=== PATIENT | male | born 2005 | race Caucasian/White ===

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

== ENCOUNTER 2025-06-11 21:20 | Emergency (ER) | payer SELFPAY ==
--- NOTE | 2025-06-11 21:37 | HMH.EDGENADL ---
Discharge Plan Disposition Patient Disposition: Home, Self-Care Condition: Good Prescriptions Prescriptions: New amoxicillin-pot clavulanate 875-125 mg tablet 1 tab PO BID Qty: 20 0RF No Action amoxicillin 875 mg tablet 875 mg PO Q12H Qty: 20 0RF pseudoephedrine HCl [Sudafed 12 Hour] 120 mg tablet extended release 120 mg PO Q12H PRN (Reason: nasal congestion) Qty: 10 0RF fluticasone propionate [Flonase Allergy Relief] 50 mcg/actuation spray,suspension 2 spray intranasal DAILY Qty: 16 0RF Rx Instructions: administer into each nostril daily Referrals Follow up/Referrals: Provider,Referral, MD [Primary Care Provider, Medical] - See instructions Activity Restrictions/Add. Instructions Additional Instructions/Restrictions: Please take your antibiotic untill it is gone. If you have any new or worsening signs or symptoms follow-up with your PCP return to the ER as needed. You can take Tylenol, ibuprofen and salt water rinses to help with pain. Clinical Impressions Clinical Impression: Exudative pharyngitis Print Language Print Language: Greek Discharge ED Provider: Miguel Mcelroy General Adult HPI <TERESE Kirby - Last Filed: 06/11/25 22:02> General Chief complaint: Upper Respiratory Infection Stated complaint: fever,body aches,sore throat Time Seen by Provider: 06/11/25 21:37 History of Present Illness HPI narrative: Patient presents for evaluation of sore throat headache body aches. Symptoms began several days ago. Patient has a long standing history of strep and still has his tonsils. He has been taking Tylenol alternating with ibuprofen and still has had had a fever above 103 when the medication wears off. He denies any chest pain shortness of breath nausea vomiting diarrhea hemoptysis hematochezia melena. Related Data Previous Rx's ?Medication ?Instructions ?Recorded amoxicillin 875 mg tablet 875 mg PO Q12H #20 tabs 01/07/24 fluticasone propionate 50 2 spray intranasal DAILY #16 grams 01/07/24 mcg/actuation nasal spray,suspension (Flonase Allergy Relief) pseudoephedrine HCl 120 mg 120 mg PO Q12H PRN nasal 01/07/24 tablet,extended release (Sudafed congestion #10 tabs 12 Hour) amoxicillin 875 mg-potassium 1 tab PO BID #20 tabs 06/11/25 clavulanate 125 mg tablet Allergies Allergy/AdvReac Type Severity Reaction Status Date / Time No Known Allergies Allergy Verified 01/07/24 18:38 [facility] <TERESE Kirby - Last Filed: 06/11/25 22:02> [facility] Disclaimer: The information contained in this section may have been updated after the patient was seen, as this information can be updated by other users. Social History (Updated 01/07/24 @ 19:03 by Palmira Fuchs APRN) Smoking Status: Current every day smoker alcohol intake: never current occupational status: employed Travel in the last 8 weeks?: None Have you lived/traveled outside US in past 30 days?: No Contact w/someone who lives/traveled outside US past 30 days?: No Exposure to someone with infectious disease in past 14 days?: No Do you have a fever (greater than 100.4 F or 38 C)?: No Have you tested positive for COVID-19?: No Exposed to someone with COVID-19 in past 14 days?: No Do you have a sore throat?: No Do you have a cough?: No Do you have any weakness?: No Do you have any diarrhea?: No Are you experiencing any unusual bleeding?: No Do you have any muscle aches/pain?: No Do you have any abdominal pain?: No Are you experiencing loss of taste or smell?: No <TERESE Kirby - Last Filed: 06/11/25 22:02> ROS Obtained: Yes Systems reviewed as appropriate & no additional complaints except as documented Physical Exam <TERESE Kirby - Last Filed: 06/11/25 22:02> General General appearance: alert and in no apparent distress Respiratory Respiratory exam: Present normal lung sounds bilaterally Cardiovascular Cardiovascular exam: Present regular rate Neurological Exam Neurological exam: Present alert and oriented X3 Medical Decision Making <TERESE Kirby - Last Filed: 06/11/25 22:02> Medical Records Medical records reviewed: Yes I reviewed the patient's medical records. Screening: Per USPSTF and CDC recommendations, given the prevalence of disease in our region, it is our hospital?s policy to screen for HIV and viral Hepatitis for all patients aged 18 and over and those with ongoing risk factors. Ty Inquiry Pt receiving controlled substance: No Vital Signs: 06/11/25 21:41 06/11/25 23:12 Temperature 99.4 F 99.4 F Temperature Source Oral Oral Pulse Rate 93 H Pulse Rate [Left Radial] 99 H Respiratory Rate 18 18 Blood Pressure 130/70 Blood Pressure [Right Arm] 121/66 Blood Pressure Mean [Right Arm] 84 Blood Pressure Source Automatic Cuff Blood Pressure Source [Right Arm] Automatic Cuff Blood Pressure Position Sitting Blood Pressure Position [Right Arm] Sitting 02 Sat by Pulse Oximetry 98 Oxygen Delivery Method Room Air Room Air Lab Data Lab results reviewed: Yes I reviewed the patient's lab results. Lab Results 06/11/25 21:42: Group A Strep Rapid Negative 06/11/25 22:16: Chlamy pneumoniae PCR Not detected, Adenovirus (PCR) Not detected, B. pertussis DNA (PCR) Not detected, Coronavirus OC43 (PCR) Not detected, Coronavirus HKU1 (PCR) Not detected, Coronavirus 229E (PCR) Not detected, SARS-CoV-2 (PCR) Not detected, Coronavirus NL63 (PCR) Not detected, Monoscreen Negative, Human Metapneumovir PCR Not detected, Influenza A (H1) PCR Not detected, Influ A (H1N1/09) PCR Not detected, Influenza A (H3) PCR Not detected, Influenza Type A (PCR) Not detected, Influenza Type B (PCR) Not detected, M. pneumoniae (PCR) Not detected, Parainfluenza 1 (PCR) Not detected, Parainfluenza 2 (PCR) Not detected, Parainfluenza 3 (PCR) Not detected, Parainfluenza 4 (PCR) Not detected, RSV (PCR) Not detected, Entero/Rhino (PCR) Not detected Orders (Tests/Meds): ED MEDICATIONS Discontinued Medications Generic Name Dose Route Start Last Admin Trade Name Freq PRN Reason Stop Dose Admin Amoxicillin/Clavulanate Potassium 1 each 06/11/25 21:45 06/11/25 22:16 Amoxicillin/Clavulanate Potassium 875/125mg Tablet PO 06/11/25 21:46 1 each ONCE ONE Administration ORDERS Category Date Time Status Full Resp Panel w/COVID ([facility]) Routine Lab 06/11/25 22:16 Completed Monoscreen (Rapid) Stat Lab 06/11/25 22:16 Completed Strep Scrn Group A (Rapid) Stat Lab 06/11/25 21:42 Completed Strep Screen Confirmation Stat Micro 06/11/25 21:42 Received Medical Decision Narrative: In summary patient is a 20-year-old male who presents to the emergency department for evaluation of sore throat fever headache body aches. Patient is hemodynamically stable upon arrival, the temperature is 99.4 currently. Physical exam is remarkable for significantly erythematous tonsils with exudate. Patient has bilateral cervical lymphadenopathy. Breath sounds clear and equal bilaterally to the bases.. Differential diagnosis includes group A strep versus other strain of strep versus other exudative pharyngitis versus mono versus viral infection. Initial workup will be conducted with rapid strep screen Monospot and throat culture. Initial interventions considered with Tylenol and ibuprofen however patient is taking both prior to his arrival. Initial workup reviewed by me and a strep screen rapid is negative and the remainder are pending at the time of handoff to Dr. Mcelroy at 2200 hrs. <Miguel Mcelroy MD - Last Filed: 06/12/25 10:16> Vital Signs: 06/11/25 21:41 06/11/25 23:12 Temperature 99.4 F 99.4 F Temperature Source Oral Oral Pulse Rate 93 H Pulse Rate [Left Radial] 99 H Respiratory Rate 18 18 Blood Pressure 130/70 Blood Pressure [Right Arm] 121/66 Blood Pressure Mean [Right Arm] 84 Blood Pressure Source Automatic Cuff Blood Pressure Source [Right Arm] Automatic Cuff Blood Pressure Position Sitting Blood Pressure Position [Right Arm] Sitting 02 Sat by Pulse Oximetry 98 Oxygen Delivery Method Room Air Room Air Lab Data Lab Results 06/11/25 21:42: Group A Strep Rapid Negative 06/11/25 22:16: Chlamy pneumoniae PCR Not detected, Adenovirus (PCR) Not detected, B. pertussis DNA (PCR) Not detected, Coronavirus OC43 (PCR) Not detected, Coronavirus HKU1 (PCR) Not detected, Coronavirus 229E (PCR) Not detected, SARS-CoV-2 (PCR) Not detected, Coronavirus NL63 (PCR) Not detected, Monoscreen Negative, Human Metapneumovir PCR Not detected, Influenza A (H1) PCR Not detected, Influ A (H1N1/09) PCR Not detected, Influenza A (H3) PCR Not detected, Influenza Type A (PCR) Not detected, Influenza Type B (PCR) Not detected, M. pneumoniae (PCR) Not detected, Parainfluenza 1 (PCR) Not detected, Parainfluenza 2 (PCR) Not detected, Parainfluenza 3 (PCR) Not detected, Parainfluenza 4 (PCR) Not detected, RSV (PCR) Not detected, Entero/Rhino (PCR) Not detected Orders (Tests/Meds): ED MEDICATIONS Discontinued Medications Generic Name Dose Route Start Last Admin Trade Name Freq PRN Reason Stop Dose Admin Amoxicillin/Clavulanate Potassium 1 each 06/11/25 21:45 06/11/25 22:16 Amoxicillin/Clavulanate Potassium 875/125mg Tablet PO 06/11/25 21:46 1 each ONCE ONE Administration ORDERS Category Date Time Status Full Resp Panel w/COVID ([facility]) Routine Lab 06/11/25 22:16 Completed Monoscreen (Rapid) Stat Lab 06/11/25 22:16 Completed Strep Scrn Group A (Rapid) Stat Lab 06/11/25 21:42 Completed Strep Screen Confirmation Stat Micro 06/11/25 21:42 Received Medical Decision Narrative: In summary patient is a 20-year-old male who presents to the emergency department for evaluation of sore throat fever headache body aches. Patient is hemodynamically stable upon arrival, the temperature is 99.4 currently. Physical exam is remarkable for significantly erythematous tonsils with exudate. Patient has bilateral cervical lymphadenopathy. Breath sounds clear and equal bilaterally to the bases.. Differential diagnosis includes group A strep versus other strain of strep versus other exudative pharyngitis versus mono versus viral infection. Initial workup will be conducted with rapid strep screen Monospot and throat culture. Initial interventions considered with Tylenol and ibuprofen however patient is taking both prior to his arrival. Initial workup reviewed by me and a strep screen rapid is negative and the remainder are pending at the time of handoff to Dr. Mcelroy at 2200 hrs. I was consulted by the [facility], and we discussed the complexity of the problems being addressed. I approve the treatment and management plan for this patient's care in the emergency department, thus performing a substantive portion of the medical decision making. At the time my assumption of care, Monospot testing and viral swab are pending. Monospot testing came back negative. The machine to run the viral swab is currently not operable, and is felt that this will not change ED management. On my assessment, patient does have an exudative tonsillitis most consistent with strep pharyngitis. Agree at this time with pursuing antibiotics to treat likely bacterial infection. Patient was prescribed Augmentin. Return precautions were provided. He was encouraged to follow-up the results of the viral panel when the machine is running again on MyChart or by calling the hospital for the results. He demonstrated understanding and was in agreement this plan. He was then discharged from the emergency department in stable condition. Miguel Mcelroy MD Critical Care <TERESE Kirby - Last Filed: 06/11/25 22:02> Critical Care Time Critical Care Time: No
--- OUTSIDE RECORDS SUMMARY | 2025-06-11 21:40 | XMS_ITS | Patient Health Record ---
Author Organization [facility] [place] Address [address] [place] [address] Care Team Providers Care Dive Master Name Role Phone SHAMIR SERVIN Primary Care Provider Reason For Referral No Information Medications Medication SIG (Take, Route, Frequency, Duration) Notes Start Date End Date Status Amoxicillin 400 mg/5 mL 1 (one) teaspoon (s) oral 2 times a day for ten 12/02/2011 Active Plan Of Treatment No Information Insurance Providers Payer Name Payer Address Payer Phone Subscriber Number Group Number Insured Name Patient Relationship to Insured Coverage Start Date Coverage End Date [employer] [address] [place] [phone] [id number] Kathi Stanton Self - patient is the insured Medical (General) History Surgical History Surgery Date(Month/Year) No Surgeries As Of Todays Date
[2025-06-11 21:41] VITALS: BP 121/66; PULSE 99; RESP 18; TEMP 37.4; O2SAT 98; BMI 28.7
[2025-06-11 21:56] LABS: Strep Scrn Group A (Rapid) Negative (Negative)
[2025-06-11] MEDS: AMOXICILLIN/CLAVULANATE POTASSIUM 875/125MG TABLET 1 EACH PO (22:16)
[2025-06-11 22:42] LABS: Adenovirus,PCR Not Detected (NotDetected); Chlamydophila Pneumoniae, PCR Not Detected (NotDetected); Coronavirus 19, PCR Not Detected (NotDetected); Coronovirus HKU1,PCR Not Detected (NotDetected); Influenza A, PCR Not Detected (NotDetected); Influenza AH1, 2009 Not Detected (NotDetected); Influenza AH1, PCR Not Detected (NotDetected); Influenza AH3,PCR Not Detected (NotDetected); Influenza B, PCR Not Detected (NotDetected); Mycoplasma Pneumoniae, PCR Not Detected (NotDetected); Parainfluenza 1, PCR Not Detected (NotDetected); Parainfluenza 2, PCR Not Detected (NotDetected); Parainfluenza 3, PCR Not Detected (NotDetected); Parainfluenza 4, PCR Not Detected (NotDetected)
[2025-06-11 22:48] LABS: Monoscreen (Rapid) Negative (Negative)
[2025-06-11 23:12] VITALS: BP 130/70; PULSE 93; RESP 18; TEMP 37.4; O2SAT 98
--- NOTE | 2025-06-15 18:51 | PC.NURSE ---
I discussed the pts positive strep culture with . The pt is on the proper antibiotic. no change needed to treatment plan.
== END 2025-06-11 23:12 | disposition home or self-care (01) ==
PROVIDERS: Physician Assistant; Emergency Provider Student in an Organized Health Care Education/Training Program
DX: J02.9 Acute pharyngitis, unspecified (principal); R51.9 Headache, unspecified; M79.18 Myalgia, other site; F17.210 Nicotine dependence, cigarettes, uncomplicated
CPT/HCPCS: 86318; 87430; 87633; 99283